=== PATIENT | female | born 2000 | race Two or more races ===

== ENCOUNTER 2022-07-09 11:37 | Emergency (ER) | payer MEDICAID ==
[~2022-07-09] VITALS: Ht 157.5 cm; Wt 49.9 kg
--- NOTE | 2022-07-09 12:01 | NUR ---
Patient AOx4 able to express her concerns. PAtient with no signs of distress, VSS. Discussed plan of care, patient verbalized agreement.
--- NOTE | 2022-07-09 12:12 | NUR ---
Blood collected and sent to the lab
[2022-07-09] MEDS ORDERED: IBUPROFEN 600 MG TABLET PO ONE (12:30)
[2022-07-09] MEDS ORDERED: IBUPROFEN 600 MG TABLET ONE (12:40)
[2022-07-09 14:26] VITALS: BP 118/77
--- NOTE | 2022-07-09 14:26 | NUR ---
IV removed. Catheter intact and site benign. Pressure and 4x4 applied to site. No bleeding noted.
--- NOTE | 2022-07-09 14:26 | NUR ---
Patient discharged to home in stable condition. Written and verbal after care instructions given. Patient verbalizes understanding of instruction.
== END 2022-07-09 14:26 | disposition home or self-care (01) ==
LOC: ER 11:58
DX: R07.89 Other chest pain (principal); Z88.0 Allergy status to penicillin
CPT/HCPCS: 99283; 71045; 93005; A4223